=== PATIENT | female | born 1995 | race Caucasian/White ===

== ENCOUNTER 2017-03-29 18:37 | Emergency (ER) | payer OTHER ==
[2017-03-29] MEDS ORDERED: Sodium Chloride 0.9% 1000 ML 1,000 ML ONE (18:52)
[2017-03-29 18:54] LABS: BASOPHIL % 0.2 % (0.0-0.4); Eosinophil % 1.1 % (0.00-5.0); Granulocytes % 48.3 % (36.0-66.0); Lymphocytes % 42.2 % (24.0-44.0); Mean Cell Volume 90.4 fl (78-100); Mean Corpuscular Hemoglobin 31.1 pg (26-32); Mean Platelet Volume 11.7 fl (6-9.5); Monocytes % 8.2 % (0.0-12.0); Platelet Count 153 K/mm3 (150-450); Red Blood Count 4.28 M/mm3 (4.1-5.4); Red Cell Distribution Width 12.5 % (11.5-14.0); White Blood Count 5.2 K/mm3 (4.0-10.5)
[2017-03-29] MEDS ORDERED: Sodium Chloride 0.9% 1000 ML 1,000 ML IV SCH (19:00)
--- NOTE | 2017-03-29 19:04 | ERPHSYRPT ---
- History of Present Illness Time Seen by Provider: 03/29/17 19:00 Source: patient Exam Limitations: no limitations Patient Subjective Stated Complaint: PT REPORTS CHEST PRESSURE-DIAPHORESIS- DENIES SOB-DENIES COUGH-REPORTS MED CHANGES A FEW MONTHS AGO Triage Nursing Assessment: PT PINK WARM ET [id number] EASY ET NONLABORED- LUNGS CLEAR ET EQUAL BILATERALLY-LEFT RADIAL PULSE STRONG ET REGULAT-PT REPORTS PAIN IS NONRADIATING-REPORTS PAIN INCREASES WITH DEEP BREATHING Physician History: ABOUT 90 MINUTES AGO PT TOOK 54MG CONCERTA AND 1 HOUR AGO STARTED WITH DIAPHORESIS AND SHARP LEFT ANTERIOR CHEST PAIN WORSE WITH DEEP BREATHING. PT ALSO STATES SHE HAS HAD VOMITING FOR THE PAST WEEK; DENIES FEVER, CHILLS, SHORTNESS OF AIR. LAST BM WAS THIS AM & WNL. PT STATES THIS IS HER FIRST 54MG CONCERTA AND PREVIOUSLY SHE WAS ON 18MG CONCERTA. Allergies/Adverse Reactions: aspirin Allergy (Verified 03/29/17 18:41) Penicillins Allergy (Verified 03/29/17 18:41) Home Medications: Methylphenidate HCl [Concerta] 54 mg PO DAILY 03/29/17 [History] Hx Tetanus, Diphtheria Vaccination/Date Given: Yes Hx Influenza Vaccination/Date Given: No Hx Pneumococcal Vaccination/Date Given: No Immunizations Up to Date: Yes - Review of Systems Cardiac: Chest Pain Abdominal/Gastrointestinal: Vomiting Endocrine: Excessive Sweating All Other Systems: Reviewed and Negative - Past Medical History Pertinent Past Medical History: Yes Neurological History: Seizures Psycho-Social History: Attention Deficit Disorder, Depression - Past Surgical History Past Surgical History: Yes Musculoskeletal: Orthopedic Surgery - Social History Smoking Status: Never smoker Exposure to second hand smoke: Yes Drug Use: none Patient Lives Alone: No - Female History Hx Last Menstrual Period: CURRENTLY - Nursing Vital Signs Nursing Vital Signs: Initial Vital Signs Temperature 98.4 F 03/29/17 18:43 Pulse Rate 80 03/29/17 18:43 Respiratory Rate 20 03/29/17 18:43 Blood Pressure 110/52 03/29/17 18:43 O2 Sat by Pulse Oximetry 10 L 03/29/17 18:43 Pain Scale Pain Intensity 8 - Physical Exam General Appearance: alert, anxiety Eye Exam: PERRL/EOMI Ears, Nose, Throat Exam: pharynx normal, moist mucous membranes Neck Exam: normal inspection Respiratory Exam: lungs clear Cardiovascular Exam: normal heart sounds Gastrointestinal/Abdomen Exam: soft, normal bowel sounds Back Exam: normal range of motion Extremity Exam: No pedal edema Neurologic Exam: alert, cooperative Skin Exam: warm, dry SpO2 Interpretation: normal SpO2: 98 Oxygen Delivery: Room Air - Course Nursing assessment & vital signs reviewed: Yes EKG Interpreted by Me: RATE (73), Sinus Rhythm, NORMAL AXIS, NORMAL INTERVALS - Radiology Exams Chest X-ray Interpretation: Interpreted by me, No Pneumonia Ordered Tests: Active Orders 24 hr Category Date Time Status Spring Fitter Helper STAT Care 03/29/17 18:47 Active Clean Catch Urine Specimen STAT Care 03/29/17 20:58 Active EKG-ER Only STAT Care 03/29/17 18:45 Active IV Insertion STAT Care 03/29/17 18:45 Active Pulse Oximetry (ED) STAT Care 03/29/17 18:46 Active CHEST 1 VIEW (PORTABLE) Stat Exams 03/29/17 18:47 Taken AMYLASE Stat Lab 03/29/17 18:30 Completed CBC W DIFF Stat Lab 03/29/17 18:30 Completed CMP Stat Lab 03/29/17 18:30 Completed D-DIMER QUANTITATION Stat Lab 03/29/17 18:30 Completed HCG QUALITATIVE,SERUM Stat Lab 03/29/17 18:30 Completed LIPASE Stat Lab 03/29/17 18:30 Completed MAGNESIUM Stat Lab 03/29/17 18:30 Completed NT PRO BNP Stat Lab 03/29/17 18:30 Completed TROPONIN Q3H Lab 03/29/17 18:30 Completed TROPONIN Q3H Lab 03/29/17 22:00 Ordered TROPONIN Q3H Lab 03/30/17 01:00 Ordered TROPONIN Q3H Lab 03/30/17 04:00 Ordered TROPONIN Q3H Lab 03/30/17 07:00 Ordered UA W/RFX UR CULTURE Stat Lab 03/29/17 21:15 Completed Urine Triage Profile Stat Lab 03/29/17 21:15 Received Medication Summary Generic Name Dose Route Start Last Admin Trade Name Freq PRN Reason Stop Dose Admin Sodium Chloride 1,000 mls @ 100 mls/hr 03/29/17 19:00 03/29/17 18:54 Sodium Chloride 0.9% 1000 Ml IV 04/28/17 18:59 100 mls/hr .Q10H ALAN Administration Discontinued Medications Generic Name Dose Route Start Last Admin Trade Name Freq PRN Reason Stop Dose Admin Diazepam 10 mg 03/29/17 19:14 09/16/17 19:18 Valium 5 Mg PO 03/29/17 19:15 10 mg STAT ONE Administration Diazepam Confirm 03/29/17 19:17 Valium 5 Mg Administered 03/29/17 19:18 Dose 10 mg .ROUTE .STK-MED ONE Lab/Rad Data: Laboratory Result Diagrams 03/29/17 18:30 03/29/17 18:30 Laboratory Results 03/29/17 03/29/17 03/29/17 Range/Units 21:15 18:30 18:30 WBC (4.0-10.5) K/mm3 RBC (4.1-5.4) M/mm3 Hgb (12.0-16.0) gm/dl Hct (35-47) % MCV (78-100) fl MCH (26-32) pg MCHC (32-36) g/dl RDW (11.5-14.0) % Plt Count (150-450) K/mm3 MPV (6-9.5) fl Gran % (36.0-66.0) % Lymphocytes % (24.0-44.0) % Monocytes % (0.0-12.0) % Eosinophils % (0.00-5.0) % Basophils % (0.0-0.4) % Basophils # (0-0.4) D-Dimer (0-500) ng/mL Sodium (136-145) mEq/L Potassium (3.5-5.1) mEq/L Chloride (98-107) mEq/L Carbon Dioxide (21-32) mEq/L Anion Gap (5-15) MEQ/L BUN (9-20) mg/dL Creatinine (0.55-1.30) mg/dl Estimated GFR ML/MIN Glucose (70-110) MG/DL Calcium (8.5-10.1) mg/dL Magnesium 1.9 (1.8-2.4) mg/dL Total Bilirubin (0.2-1.0) mg/dL AST (15-37) U/L ALT (12-78) U/L Alkaline Phosphatase (46-116) U/L Troponin I (0.000-0.056) ng/ml NT-Pro-B Natriuret Pep (0-125) pg/ml Serum Total Protein (6.4-8.2) gm/dL Albumin (3.4-5.0) g/dL Amylase 30 (25-115) U/L Lipase 133 (73-393) U/L Serum , Qual NEGATIVE (Negative) Ur Collection Type CLEAN CATCH Urine Color YELLOW (YELLOW) Urine Appearance CLEAR (CLEAR) Urine pH 6.0 (5-6) Ur Specific [place] 1.015 (1.005-1.025) Urine Protein NEGATIVE (Negative) Urine Ketones NEGATIVE (NEGATIVE) Urine Blood NEGATIVE (0-5) Tanner/ul Urine Nitrite NEGATIVE (NEGATIVE) Urine Bilirubin NEGATIVE (NEGATIVE) Urine Urobilinogen NORMAL (0-1) mg/dL Ur Leukocyte Esterase NEGATIVE (NEGATIVE) Urine Glucose NEGATIVE (NEGATIVE) mg/dL Specimen Received 03/29/17:5 03/29/17 03/29/17 03/29/17 Range/Units 18:30 18:30 18:30 WBC (4.0-10.5) K/mm3 RBC (4.1-5.4) M/mm3 Hgb (12.0-16.0) gm/dl Hct (35-47) % MCV (78-100) fl MCH (26-32) pg MCHC (32-36) g/dl RDW (11.5-14.0) % Plt Count (150-450) K/mm3 MPV (6-9.5) fl Gran % (36.0-66.0) % Lymphocytes % (24.0-44.0) % Monocytes % (0.0-12.0) % Eosinophils % (0.00-5.0) % Basophils % (0.0-0.4) % Basophils # (0-0.4) D-Dimer < 200 (0-500) ng/mL Sodium 144 (136-145) mEq/L Potassium 3.7 (3.5-5.1) mEq/L Chloride 109 H (98-107) mEq/L Carbon Dioxide 24.0 (21-32) mEq/L Anion Gap 14.2 (5-15) MEQ/L BUN 13 (9-20) mg/dL Creatinine 0.73 (0.55-1.30) mg/dl Estimated GFR > 60 ML/MIN Glucose 101 (70-110) MG/DL Calcium 9.6 (8.5-10.1) mg/dL Magnesium (1.8-2.4) mg/dL Total Bilirubin 0.30 (0.2-1.0) mg/dL AST 17 (15-37) U/L ALT 19 (12-78) U/L Alkaline Phosphatase 100 (46-116) U/L Troponin I < 0.017 (0.000-0.056) ng/ml NT-Pro-B Natriuret Pep 45 (0-125) pg/ml Serum Total Protein 7.3 (6.4-8.2) gm/dL Albumin 4.3 (3.4-5.0) g/dL Amylase (25-115) U/L Lipase (73-393) U/L Serum , Qual (Negative) Ur Collection Type Urine Color (YELLOW) Urine Appearance (CLEAR) Urine pH (5-6) Ur Specific [place] (1.005-1.025) Urine Protein (Negative) Urine Ketones (NEGATIVE) Urine Blood (0-5) Tanner/ul Urine Nitrite (NEGATIVE) Urine Bilirubin (NEGATIVE) Urine Urobilinogen (0-1) mg/dL Ur Leukocyte Esterase (NEGATIVE) Urine Glucose (NEGATIVE) mg/dL Specimen Received 03/29/17 Range/Units 18:30 WBC 5.2 (4.0-10.5) K/mm3 RBC 4.28 (4.1-5.4) M/mm3 Hgb 13.3 (12.0-16.0) gm/dl Hct 38.7 (35-47) % MCV 90.4 (78-100) fl MCH 31.1 (26-32) pg MCHC 34.4 (32-36) g/dl RDW 12.5 (11.5-14.0) % Plt Count 153 (150-450) K/mm3 MPV 11.7 H (6-9.5) fl Gran % 48.3 (36.0-66.0) % Lymphocytes % 42.2 (24.0-44.0) % Monocytes % 8.2 (0.0-12.0) % Eosinophils % 1.1 (0.00-5.0) % Basophils % 0.2 (0.0-0.4) % Basophils # 0.01 (0-0.4) D-Dimer (0-500) ng/mL Sodium (136-145) mEq/L Potassium (3.5-5.1) mEq/L Chloride (98-107) mEq/L Carbon Dioxide (21-32) mEq/L Anion Gap (5-15) MEQ/L BUN (9-20) mg/dL Creatinine (0.55-1.30) mg/dl Estimated GFR ML/MIN Glucose (70-110) MG/DL Calcium (8.5-10.1) mg/dL Magnesium (1.8-2.4) mg/dL Total Bilirubin (0.2-1.0) mg/dL AST (15-37) U/L ALT (12-78) U/L Alkaline Phosphatase (46-116) U/L Troponin I (0.000-0.056) ng/ml NT-Pro-B Natriuret Pep (0-125) pg/ml Serum Total Protein (6.4-8.2) gm/dL Albumin (3.4-5.0) g/dL Amylase (25-115) U/L Lipase (73-393) U/L Serum , Qual (Negative) Ur Collection Type Urine Color (YELLOW) Urine Appearance (CLEAR) Urine pH (5-6) Ur Specific [place] (1.005-1.025) Urine Protein (Negative) Urine Ketones (NEGATIVE) Urine Blood (0-5) Tanner/ul Urine Nitrite (NEGATIVE) Urine Bilirubin (NEGATIVE) Urine Urobilinogen (0-1) mg/dL Ur Leukocyte Esterase (NEGATIVE) Urine Glucose (NEGATIVE) mg/dL Specimen Received - Departure Time of Disposition: 21:34 Departure Disposition: Home Clinical Impression: CHEST PAIN, ANXIETY Condition: Stable Critical Care Time: No Referrals: SAMUEL BROWN [Primary Care Provider] - Instructions: Chest Pain Additional Instructions: FOLLOW UP WITH PRIVATE DOCTOR TOMORROW. DO NOT TAKE CONCERTA UNTIL YOU SEE YOUR DOCTOR.
[2017-03-29] MEDS ORDERED: Valium 5 MG PO ONE (19:14)
[2017-03-29] MEDS ORDERED: Valium 5 MG ONE (19:17)
[2017-03-29 19:33] LABS: MAGNESIUM 1.9 mg/dL (1.8-2.4)
[2017-03-29 19:42] LABS: ALBUMIN 4.3 g/dL (3.4-5.0); ALKALINE PHOSPHATASE 100 U/L (46-116); ANION GAP 14.2 MEQ/L (5-15); BLOOD UREA NITROGEN 13 mg/dL (9-20); CHLORIDE 109 mEq/L (98-107); Glucose 101 MG/DL (70-110); Potassium 3.7 mEq/L (3.5-5.1); SGOT/AST 17 U/L (15-37); SGPT/ALT 19 U/L (12-78); SODIUM 144 mEq/L (136-145); Total Protein 7.3 gm/dL (6.4-8.2)
[2017-03-29 21:23] LABS: ADD URINE CULTURE? NO (NO); Bilirubin NEGATIVE (NEGATIVE); Blood NEGATIVE Ery/ul (0-5); COMPLETE URINE MICROSCOPIC? NO; Collection Type CLEAN CATCH; Glucose NEGATIVE (NEGATIVE); Leukocyte Esterase NEGATIVE (NEGATIVE)
[2017-03-29 21:57] VITALS: BP 107/67; PULSE 85; O2SAT 100
--- NOTE | 2017-03-29 22:02 | XRAY ---
Indication: Chest pain. Comparison: None Portable chest demonstrates normal heart, lungs, and bony thorax.
== END 2017-03-29 21:56 | disposition home or self-care (01) ==
LOC: ED 18:37
DX: R07.89 Other chest pain (principal); F41.9 Anxiety disorder, unspecified; R11.10 Vomiting, unspecified
CPT/HCPCS: 36000; 36415; 71010; 80053; 80307; 81002; 82150; 83690; 83735; 83880; 84484; 84703; 85025; 85379; 93005; 93041; 96360; 99284; 99285; A9270-GY

== ENCOUNTER 2017-10-10 14:20 | Emergency (ER) | payer OTHER ==
--- NOTE | 2017-10-10 14:44 | ERPHSYRPT ---
- History of Present Illness Time Seen by Provider: 10/10/17 14:44 Source: patient, family Exam Limitations: no limitations Patient Subjective Stated Complaint: Pt states she has a knot on the inside wall of her vagina. Pt noticed it two days ago when she went to wipe and noticed it was tender. Denies any abnormal discharge or bleeding. Also states that she is 15 weeks - her ob is dr. pate. Triage Nursing Assessment: Pt alert and oriented x3. skin pink warm and dry. afebrile. pt does not appear to be in any distress at this time Physician History: The patient is a female at 15-1/2 weeks complaining of worsening swelling and tenderness in the right labial area for 2 days. She called her OB doctor and was told she could not see him until next week. She denies fever or chills. She does not have any abnormal discharge or bleeding from the vagina. Her past medical history is unremarkable. Timing/Duration: day(s) (2) Activites at Onset: none Quality: sharpness Onset Location: vulvar pain (right) Pain Radiation: none Severity of Pain-Max: moderate Severity of Pain-Current: moderate Prior abdominal problems: none Sexual intercourse history: non-contributory Modifying Factors: Improves With: nothing Associated Symptoms: , swelling Allergies/Adverse Reactions: aspirin Allergy (Verified 10/10/17 14:27) Penicillins Allergy (Verified 10/10/17 14:27) Home Medications: No Reportable Medications [No Reported Medications] 10/10/17 [History] Hx Tetanus, Diphtheria Vaccination/Date Given: Yes Hx Influenza Vaccination/Date Given: No Hx Pneumococcal Vaccination/Date Given: No - Review of Systems Constitutional: No Fever, No Chills Eyes: No Symptoms Ears, Nose, & Throat: No Symptoms Respiratory: No Cough, No Dyspnea Cardiac: No Chest Pain, No Edema, No Syncope Abdominal/Gastrointestinal: No Abdominal Pain, No Nausea, No Vomiting, No Diarrhea Genitourinary Symptoms: No Dysuria Musculoskeletal: No Back Pain, No Neck Pain Skin: No Rash Neurological: No Dizziness, No Focal Weakness, No Sensory Changes Psychological: No Symptoms Endocrine: No Symptoms Hematologic/Lymphatic: No Symptoms Immunological/Allergic: No Symptoms All Other Systems: Reviewed and Negative - Past Medical History Pertinent Past Medical History: Yes Neurological History: Seizures Psycho-Social History: Attention Deficit Disorder, Depression Other Medical History: adhd - Past Surgical History Past Surgical History: Yes Musculoskeletal: Orthopedic Surgery - Social History Smoking Status: Former smoker Exposure to second hand smoke: No Drug Use: none Patient Lives Alone: No - Female History Hx Last Menstrual Period: July 02, 2017 Hx Now: Yes Expected Date of Delivery: 04/03/18 - Nursing Vital Signs Nursing Vital Signs: Initial Vital Signs Temperature 99.1 F 10/10/17 14:30 Pulse Rate 104 H 10/10/17 14:30 Respiratory Rate 16 10/10/17 14:30 Blood Pressure 124/74 10/10/17 14:30 O2 Sat by Pulse Oximetry 97 10/10/17 14:30 Pain Scale Pain Intensity 8 - Physical Exam General Appearance: no apparent distress, alert Eye Exam: PERRL/EOMI, eyes nml inspection Ears, Nose, Throat Exam: normal ENT inspection, TMs normal, pharynx normal, moist mucous membranes Neck Exam: normal inspection, non-tender, supple, full range of motion Respiratory Exam: normal breath sounds, lungs clear, No respiratory distress Cardiovascular Exam: regular rate/rhythm, normal heart sounds, normal peripheral pulses Gastrointestinal/Abdomen Exam: soft, No tenderness, No mass Pelvic Exam: other ( examination of the external genitalia reveals mild swelling and tenderness to palpation of the inferior aspect of the right labial region. There is no fluctuance. 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 Leon who is on-call for Dr. Pleitez. Dr. Leon recommends sitz bath 2-3 times a day until follow-up with Dr. Pate in less than 2 weeks on October 22. If the condition worsens, she is to call Dr. Pate next week. Counseled pt/family regarding: diagnosis, need for follow-up - Departure Time of Disposition: 15:25 Departure Disposition: Home Clinical Impression: Bartholin's cyst Condition: Stable Critical Care Time: No Referrals: SAMUEL BROWN [Primary Care Provider] - Additional Instructions: You have a Bartholin's cyst that has become tender. We will not drain the cyst today because it is not ready to be drained. Instead you are to take warm sitz baths baths 2-3 times a day for 10-15 minutes at a time until you see Dr. Pate on October 22. If the condition worsens significantly next week, please call Dr. Pate office to be seen earlier. Take tylenolo 1000 mg every 6 to 8 hrs as needed.
[2017-10-10 15:45] VITALS: BP 100/71; PULSE 98; O2SAT 99
== END 2017-10-10 15:45 | disposition home or self-care (01) ==
LOC: ED 14:20
DX: O26.892 Other specified pregnancy related conditions, second trimester (principal); Z3A.15 15 weeks gestation of pregnancy; R10.2 Pelvic and perineal pain; N75.0 Cyst of Bartholin's gland
CPT/HCPCS: 99281

== ENCOUNTER 2017-12-29 02:33 | Observation (INO) | payer OTHER ==
[2017-12-29 03:31] LABS: Appearance CLEAR (CLEAR); Bilirubin NEGATIVE (NEGATIVE); Blood NEGATIVE Ery/ul (0-5); Glucose NEGATIVE (NEGATIVE); Ketones NEGATIVE (NEGATIVE); Leukocyte Esterase 1+ (NEGATIVE); Nitrite NEGATIVE (NEGATIVE); Protein,Urine Dip NEGATIVE (Negative); Urobilinogen NORMAL mg/dL (0-1)
[2017-12-29 03:33] LABS: Bacteria FEW /HPF (NEGATIVE); Epithelial Cells MODERATE /HPF (FEW)
[2017-12-29] MEDS ORDERED: Sodium Chloride 0.9% 1000 ML 1,000 ML IV STA (03:47)
[2017-12-29] MEDS ORDERED: Lactated Ringers 1,000 ML IV SCH (04:00)
[2017-12-29] MEDS ORDERED: TYLENOL 325 MG PO ONE (08:45)
[2017-12-29 09:07] VITALS: BP 99/51; PULSE 95
--- NOTE | 2017-12-29 09:25 | XRAY ---
Indication: well-being. 2-dimensional OB ultrasound performed. Comparison: None There is a single viable in intrauterine currently in cephalic presentation. Normal four-chamber heart with heart rate 128 bpm. Normal three-vessel cord and cord insertion. Visualized head, spine, stomach, kidneys, and bladder appear unremarkable. Placenta is anterior without abruption/previa. Cervical length measures 3.6 cm. BPD measures 6.79 cm corresponding to 27 weeks 2 days. HC measures 24.69 cm corresponding to 26 weeks 6 days. AC measures 22.63 cm corresponding to 27 weeks 0 days. FL measures 5.12 cm corresponding to 27 weeks 3 days. ADWOA is 17.7 cm. Impression: Single viable intrauterine with mean gestational age 27 weeks 1 day. Expected date confinement is March 29, 2018. No gross anomalies.
== END 2017-12-29 11:20 | disposition home or self-care (01) ==
LOC: OB 02:33
PROVIDERS: ADMIT Family Medicine; ATTEND Family Medicine
DX: Z34.02 Encounter for supervision of normal first pregnancy, second trimester (principal)
CPT/HCPCS: 76805; 81000; 87086; G0378; A9270-GY

== ENCOUNTER 2018-01-05 21:35 | Observation (INO) | payer OTHER ==
[2018-01-05 23:11] LABS: Appearance CLOUDY (CLEAR); Specific Gravity 1.025 (1.005-1.025)
[2018-01-05 23:12] LABS: Bilirubin NEGATIVE (NEGATIVE); Blood TRACE NON-HEM Ery/ul (0-5); Glucose NEGATIVE (NEGATIVE); Ketones NEGATIVE (NEGATIVE); Leukocyte Esterase 2+ (NEGATIVE); Nitrite POSITIVE (NEGATIVE); Protein,Urine Dip 30 (Negative); Urobilinogen NORMAL mg/dL (0-1)
[2018-01-05 23:14] LABS: Bacteria FEW /HPF (NEGATIVE); Epithelial Cells RARE /HPF (FEW)
[2018-01-05] MEDS ORDERED: Sodium Chloride 0.9% 1000 ML 1,000 ML IV STA (23:46)
[2018-01-06 00:14] LABS: Amphetamine,Urine NEGATIVE (NEGATIVE); Barbiturate,Urine NEGATIVE (NEGATIVE); Benzodiazepine,Urine NEGATIVE (NEGATIVE); Cocaine,Urine NEGATIVE (NEGATIVE); Methadone,Urine NEGATIVE (NEGATIVE); Opiate,Urine NEGATIVE (NEGATIVE); PCP,Urine NEGATIVE (NEGATIVE); THC,Urine NEGATIVE (NEGATIVE)
[2018-01-06 00:38] LABS: Granulocyte Absolute (ANC) 6.06 (1.4-6.9); Hemoglobin 10.9 gm/dl (12.0-16.0); Mean Cell Volume 94.1 fl (78-100); Mean Corpuscular Hgb Concent. 34.1 g/dl (32-36); Mean Platelet Volume 11.2 fl (6-9.5); Platelet Count 178 K/mm3 (150-450); Red Cell Distribution Width 12.9 % (11.5-14.0); White Blood Count 8.8 K/mm3 (4.0-10.5)
[2018-01-06 00:57] LABS: ALBUMIN 3.4 g/dL (3.5-5.0); ALKALINE PHOSPHATASE 115 U/L (38-126); ANION GAP 12.5 MEQ/L (5-15); BLOOD UREA NITROGEN 7 mg/dL (7-17); CHLORIDE 107 mmol/L (98-107); Calcium 9.5 mg/dL (8.4-10.2); Carbon Dioxide 21 mmol/L (22-30); Creatinine 1 0.53 mg/dL (0.52-1.04); Glucose 97 mg/dL (74-106); Potassium 3.2 mmol/L (3.5-5.1); SGOT/AST 15 U/L (14-36); SGPT/ALT 15 U/L (0-35); SODIUM 138 mmol/L (137-145); Total Protein 6.3 g/dL (6.3-8.2)
[2018-01-06] MEDS: ROCEPHIN 1 Gm-D5w 50 ml Bag** 1 G/50 ML IVPB IV SCH ×2 (01:00→20:22)
[2018-01-06 01:42] LABS: Eosinophil 3 % (0.00-3.0); Lymphocytes 24 % (24-44); Monocyte 6 % (0.0-12.0); Neutrophils 67 % (36.0-66.0); Platelet Estimate NORMAL (NORMAL); Total Cells Counted 100
[2018-01-06] MEDS: Lactated Ringers 1,000 ML IV SCH ×3 (02:06→16:54)
[2018-01-06] MEDS ORDERED: ROCEPHIN 1 Gm-D5w 50 ml Bag** 1 G/50 ML IVPB IV SCH (10:00)
--- NOTE | 2018-01-06 10:05 | XRAY ---
Exam: OB ultrasound greater than 14 weeks from 01/06/2018. Comparison: OB ultrasound greater than 14 weeks from 12/29/2017. Indication: well-being including cervical length, patient came in with contractions. Technique: Longitudinal and transverse transabdominal sonograms were obtained. In addition, some transvaginal longitudinal images were obtained to determine the maternal cervical length. Findings: A single live intrauterine fetus is seen in the breech lie. The placenta is anterior. No placenta previa or abruption is seen. A normal amount of amniotic fluid is seen with an amniotic fluid index of 18.2 cm. The human performance technologist measured the maternal cervical canal length at 4.07 cm. However, I believe this is overestimated as the distal point was incorrectly placed. Manual remeasurement is 3.4 cm which is still within normal limits. No significant fluid within the cervical canal or funneling is seen. The heart rate measures 143 bpm. Measurements of the biparietal diameter, head circumference, abdominal circumference, and femur length suggest a composite gestational age of 28 weeks 0 days plus or -2 weeks yielding an estimated due date of 03/31/2018. This represents satisfactory interval growth since the previous exam of 12/29/2017. Estimated weight is 2 lbs. 10 oz.+ or -6 [address] the fetus in the 47.8 percentile. size ratios are all within normal limits. The heart is 4 chambered. body movement was seen by the human performance technologist. Fluid is seen within both the stomach and urinary bladder. A full survey was not obtained. There appears to be a 3 vessel umbilical cord. Impression: 1. Single live intrauterine fetus is seen in a breech lie. The size measurements suggest a gestational age of 28 weeks 0 days plus or -2 weeks 0 days. This is in reasonable accordance with the gestational age by dates (27 weeks 6 days). 2. The placenta is anterior. No placenta previa or abruption is seen. 3. A normal amount of amniotic fluid is seen with an amniotic fluid index of 18.2 cm. 4. The maternal cervical canal length is 3.4 cm and reveals no fluid within it. No significant funneling is seen.
[2018-01-06 23:43] VITALS: BP 117/67; PULSE 103
== END 2018-01-06 22:30 | disposition home or self-care (01) ==
LOC: OB 21:35
PROVIDERS: ADMIT Family Medicine; ATTEND Family Medicine
DX: O23.42 Unspecified infection of urinary tract in pregnancy, second trimester (principal); Z3A.27 27 weeks gestation of pregnancy
CPT/HCPCS: 36415; 76805; 80053; 80307; 81000; 85025; 87086; G0378; J0696

== ENCOUNTER 2021-02-14 20:53 | Emergency (ER) | payer OTHER ==
--- NOTE | 2021-02-14 20:59 | ERPHSYRPT ---
- History of Present Illness Time Seen by Provider: 02/14/21 20:58 Source: patient Exam Limitations: no limitations Physician History: This is a 25-year-old white female who is approximately 15 weeks and fell down 2-3 steps at her home. She fell on her outstretched arm and has pain in her right wrist, right ankle and right foot. Patient states that she has no abdominal pain. She has no vaginal bleeding and has no abdominal pain. Patient states that she is not concerned about an injury to the fetus. She wanted her right wrist, right ankle and right foot evaluated. Patient did not hit her head. She has no neck pain she has no loss of consciousness. Occurred: just prior to arrival Reason for Fall: tripped Injuries/Pain Location: upper extremity (Right wrist), lower extremity (Right foot and ankle) Loss of Consciousness: no loss of consciousness Quality: aching Severity of Pain-Max: mild Severity of Pain-Current: mild Modifying Factors: Improves With: movement Associated Symptoms (Fall): extremity injury (Right wrist, right foot and ankle) Allergies/Adverse Reactions: aspirin Allergy (Severe, Verified 02/14/21 21:09) Anaphylactic Reaction Penicillins Adverse Reaction (Mild, Verified 02/14/21 21:09) Rash Home Medications: Vits W-Ca,Fe,FA(<1Mg) [] 1 each PO DAILY 12/29/17 [History] Ondansetron HCl [Zofran] 4 mg PO Q8H PRN PRN 02/14/21 [History] Pyridoxine HCl (Vitamin B6) [Vitamin B-6] 25 mg PO DAILY 02/14/21 [History] Hx Tetanus, Diphtheria Vaccination/Date Given: Yes Hx Influenza Vaccination/Date Given: No Hx Pneumococcal Vaccination/Date Given: No Travel Risk - International Travel Have you traveled outside of the country in past 3 weeks: No - Coronavirus Screening Are you exhibiting any of the following symptoms?: No Close contact with a COVID-19 positive Pt in past 14-21 Days: No - Review of Systems Constitutional: No Symptoms Eyes: No Symptoms Ears, Nose, & Throat: No Symptoms Respiratory: No Symptoms Cardiac: No Symptoms Abdominal/Gastrointestinal: No Symptoms Genitourinary Symptoms: No Symptoms Musculoskeletal: Fall, Injury (Right wrist, right foot, right ankle) Skin: No Symptoms Neurological: No Symptoms Psychological: No Symptoms Endocrine: No Symptoms Hematologic/Lymphatic: No Symptoms Immunological/Allergic: No Symptoms All Other Systems: Reviewed and Negative - Past Medical History Pertinent Past Medical History: Yes Neurological History: Seizures Psycho-Social History: Attention Deficit Disorder, Depression Other Medical History: adhd - Past Surgical History Past Surgical History: Yes Musculoskeletal: Orthopedic Surgery - Social History Smoking Status: Former smoker Exposure to second hand smoke: No Drug Use: none Patient Lives Alone: No - Nursing Vital Signs Nursing Vital Signs: Initial Vital Signs Temperature 98.3 F 02/14/21 20:57 Pulse Rate 75 02/14/21 20:57 Respiratory Rate 17 02/14/21 20:57 Blood Pressure 109/75 02/14/21 20:57 O2 Sat by Pulse Oximetry 98 02/14/21 20:57 Pain Scale Pain Intensity 4 - Evans Coma Score Best Eye Response (Evans): (4) open spontaneously Best Verbal Response ([place]): (5) oriented Best Motor Response (Evans): (6) obeys commands [place] Total: 15 - Physical Exam General Appearance: no apparent distress, alert, anxiety Head Injury: no evidence of injury Eye Exam: PERRL/EOMI ENT Exam: airway nml, nml ext.inspection Neck Exam: supple, trachea midline, full range of motion, normal alignment, normal inspection Respiratory/Chest Exam: normal breath sounds, No chest tenderness, No respiratory distress, No ecchymosis, No crepitus Cardiovascular Exam: normal heart sounds, regular rate/rhythm, normal peripheral pulses Gastrointestinal Exam: soft, normal bowel sounds, No tenderness Rectal Exam: not done Back Exam: normal inspection, normal range of motion, No CVA tenderness, No vertebral tenderness Extremity Exam: normal inspection, normal range of motion, capillary refill <3 sec, pelvis stable, pain with movement (Right wrist right ankle), No deformities Neurologic Exam: alert, oriented x 3, cooperative, 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, normal mood/affect, nml cerebellar function, nml station & gait, sensation nml Skin Exam: normal color, warm, dry SpO2 Interpretation: normal O2 Delivery: Room Air - Course Nursing assessment & vital signs reviewed: Yes Ordered Tests: Active Orders 24 hr Category Date Time Status ANKLE (2V) Stat Exams 02/14/21 21:22 Ordered FOOT (2 VIEWS) Stat Exams 02/14/21 21:22 Ordered WRIST (2 VIEW) Stat Exams 02/14/21 21:22 Ordered - Progress Progress: unchanged, pain not gone completely, re-examined Progress Note: 02/14/21 22:09 X-ray of right wrist reveals no evidence of any acute fracture or dislocation. X-ray of right ankle reveals no evidence of any acute fracture or dislocation. X-ray of right foot reveals no evidence of any acute fracture or dislocation Counseled pt/family regarding: diagnosis, need for follow-up, rad results - Departure Departure Disposition: Home Clinical Impression: Fall with no significant injury, Right wrist sprain, Right ankle sprain Condition: Stable Critical Care Time: No Referrals: SAMUEL ROSA [Primary Care Provider] - Additional Instructions: Ice pack to areas of tenderness 3 times a day for the next 48 hours. Use Tylenol for pain control. Follow-up with primary care doctor for persistent sym ptoms.
[2021-02-14 22:37] VITALS: BP 114/70; PULSE 74; O2SAT 99
--- NOTE | 2021-02-15 20:28 | XRAY ---
Exam: Two-view right ankle series from 02/14/2021. Indication: Patient fell, complains of lateral right foot and ankle pain. Findings: AP and lateral radiographs reveal no acute fracture or dislocation. The right ankle mortise is well-preserved and appears uniform. No other focal bone or joint abnormality is seen. Impression: 1. No acute right ankle fracture or dislocation is seen. Note: The patient's abdomen was shielded with a lead apron, as she is 15 weeks .
--- NOTE | 2021-02-15 20:30 | XRAY ---
2 view right foot series from 02/14/2021. Comparison: None. Indication: Patient fell, complains of lateral right foot and ankle pain. Findings: AP and lateral radiographs reveal no acute fracture or dislocation. The joint spaces appear unremarkable. There is a normal plantar arch. No radiopaque soft tissue foreign body is seen. Impression: 1. No acute fracture or dislocation of the right foot is seen. Note: The patient's lower abdomen was shielded with a lead apron, as she is 15 weeks .
--- NOTE | 2021-02-15 20:32 | XRAY ---
Exam: Two-view right wrist series from 02/14/2021. Comparison: None. Indication: Patient fell, complains of right wrist pain. Findings: AP and lateral radiographs are submitted for evaluation. I see no acute fracture or dislocation. 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 The remainder of the carpal bones appear unremarkable. The right wrist joint appears unremarkable. Impression: 1. No acute fracture or dislocation of the right wrist is seen. 2. 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 This is an incidental note. Note: The patient's lower abdomen was shielded with a lead apron, as she is 15 weeks .
== END 2021-02-14 22:35 | disposition home or self-care (01) ==
LOC: ED 20:53
DX: S63.501A Unspecified sprain of right wrist, initial encounter (principal); S93.401A Sprain of unspecified ligament of right ankle, initial encounter; W10.8XXA Fall (on) (from) other stairs and steps, initial encounter; Y93.01 Activity, walking, marching and hiking; Y92.008 Other place in unspecified non-institutional (private) residence as the place of occurrence of the external cause; Z3A.15 15 weeks gestation of pregnancy
CPT/HCPCS: 73100; 73600; 73620; 99283